=== PATIENT | male | born 1995 | race African-American/Black ===

== ENCOUNTER 2020-03-24 12:31 | Emergency (ER) | payer SELFPAY ==
[~2020-03-24] VITALS: Ht 172.7 cm; Wt 62.6 kg
[2020-03-24 12:43] VITALS: BP 120/79
--- NOTE | 2020-03-24 13:27 | Emergency Room Report ---
History of Present Illness General Chief Complaint: Abdominal Pain Source: Patient Present Illness HPI Patient states that he just recently moved here from the [facility]. States that he had a colonoscopy for abnormal swab test around his anus and was told that he had polyps in his colon. He had the polyps removed. He states that he called his GI physician who performed a colonoscopy and spoke with the office who informed him that the studies were negative. He states however he still little nervous and does not feel that his bowel movements are quite normal. He denies any rectal bleeding. Denies any fever chest pain shortness of breath. Denies any nausea or vomiting. He states that he just wants to make sure everything is okay. He notes that he saw his clinic doctor about a week or so ago and had extensive work-up including laboratory work-up and testing. States that everything was normal. He is not sure we can do MRI of his whole body so that we can find any lumps of bumps that are abnormal. No other complaints are noted. Patient is tolerating p.o. Patient denies any difficulty with urination. Patient states that he occasionally has some mild back pain which he sees a chiropractor for. He denies any numbness or tingling or weakness in his legs. No other modifying factors. No other associated signs and symptoms. No other complaints were noted. Allergies: Coded Allergies: No Known Allergies (Unverified , 03/24/20) COVID-19 Screening Contact w/high risk pt: No Experienced COVID-19 symptoms?: No COVID-19 Testing performed [employer]SE[employer]: No Patient History Past Medical History: other - Colonic polyps Past Surgical History: none Pertinent Family History: none Social History: Denies: smoking, alcohol use, drug use Reviewed Nursing Documentation: PMH: Agreed; PSxH: Agreed Nursing Documentation-PMH Past Medical History: No Stated History Review of Systems All Other Systems: negative except mentioned in HPI Physical Exam Vital Signs Date Time Temp Pulse Resp B/P (MAP) Pulse Ox O2 Delivery O2 Flow Rate FiO2 03/24/20 12:36 97.9 87 18 120/79 (93) 97 Room Air Sp02 EP Interpretation: reviewed, normal General Appearance: normal inspection, well appearing, no apparent distress, al ert Head: atraumatic Eyes: bilateral eye normal inspection ENT: normal ENT inspection, hearing grossly normal, normal voice Neck: normal inspection, full range of motion, supple, no bony tend Respiratory: normal inspection, lungs clear, normal breath sounds, no respiratory distress, no retraction, no wheezing Cardiovascular #1: regular rate, rhythm, no edema Gastrointestinal: normal inspection, normal bowel sounds, non tender, soft, no guarding, no hernia Genitourinary: no CVA tenderness Musculoskeletal: normal inspection, back normal, normal range of motion Neurologic: alert, responsive, speech normal, normal inspection Psychiatric: normal inspection, judgement/insight normal, mood/affect normal Skin: no rash Medical Decision Making Diagnostic Impression: Primary Impression: Constipation ER Course Patient presents emergency department today complaining of occasional abdominal discomfort at times having difficult bowel movements. Differential considerations include acute constipation irritable bowel syndrome, gastroenteritis just name a few. Patient's exam is benign. Symptoms are consistent with constipation. Patient does seem to be overly concerned about his health given that he is relatively healthy and has had extensive work-up in the past. I recommend outpatient follow-up for this I do not feel the patient requires any further work-up at this time given the patient already has had extensive work-up in the past. However x-rays were obtained to rule out any abnormal bowel or abdomen findings. This shows evidence of large amount of stool consistent constipation. Will provide patient with prescription for laxative. Recommend outpatient follow-up as needed. Patient is advised to follow up with primary doctor in 2-3 days and return the emergency room for any worsening symptoms and as needed. Other X-Ray Diagnostic Results Other X-Ray Diagnostic Results : X-Ray ordered: Abdominal x-ray # of Views/Limited Vs Complete: 2 View Indication: Pain EP Interpretation: Yes Interpretation: nonspecific bowel gas, no sbo, other - Large amount of stool Impression: Other - Constipation Electronically Signed by: Electronically signed by Abdiel Hassan MD Last Vital Signs Date Time Temp Pulse Resp B/P (MAP) Pulse Ox O2 Delivery O2 Flow Rate FiO2 03/24/20 12:43 97.9 87 18 120/79 97 Room Air Status: unchanged Disposition: HOME, SELF-CARE Condition: Stable Scripts Lactulose (LACTULOSE*) 20 Gm/30 Ml Solution 30 ML ORAL DAILY for 7 Days, ML 0 Refills Prov: Abdiel Hassan MD 03/24/20 Docusate Sodium* (COLACE*) 100 Mg Capsule 100 MG ORAL TWICE A DAY for 14 Days, CAP Prov: Abdiel Hassan MD 03/24/20 Referrals: NOT CHOSEN IPA/,REFERRING (PCP) Abdiel Hassan MD Mar 24, 2020 13:27
[2020-03-24] MEDS ORDERED: LACTULOSE20 GM/301 ORAL (13:50)
[2020-03-24] MEDS ORDERED: COLACE100 MG ORAL (13:50)
[2020-03-24 13:53] VITALS: BP 120/79
--- NOTE | 2020-03-24 15:55 | Diagnostic Imaging Report ---
Indication: Abdominal pain Technique: Supine view of the abdomen Comparison: none Findings: Unremarkable bowel gas pattern. No masses or unusual calcifications. Impression: Negative
== END 2020-03-24 14:09 | disposition home or self-care (01) ==
LOC: EMR 13:06
DX: K59.00 Constipation, unspecified (principal); Z86.010 Personal history of colon polyps; R10.9 Unspecified abdominal pain
CPT/HCPCS: 74019; 99283